=== PATIENT | male | born 1955 | race American Indian/Alaskan Native ===

== ENCOUNTER 2017-11-09 12:25 | Emergency (ER) | payer SELFPAY ==
--- NOTE | 2017-11-09 12:43 | Emergency Department Report ---
ED Psych HPI - General Stated Complaint: CHEST PAIN Time Seen by Provider: 11/09/17 12:41 ED Review of Systems ROS: Stated complaint: CHEST PAIN Other details as noted in HPI Critical care attestation.: If time is entered above; I have spent that time in minutes in the direct care of this critically ill patient, excluding procedure time. ED Disposition Condition: Stable
[2017-11-09 13:44] LABS: Basophils % (Auto) 0.8 % (0.0-1.8); Eosinophils # (Auto) 0.2 K/mm3 (0.0-0.4); Eosinophils % (Auto) 3.8 % (0.0-4.3); Hematocrit 39.4 % (35.5-45.6); Hemoglobin 13.7 gm/dl (11.8-15.2); Lymphocytes # (Auto) 1.7 K/mm3 (1.2-5.4); Mean Corpuscular HGB Conc 35 % (32-34); Mean Corpuscular Hemoglobin 32 pg (28-32); Mean Corpuscular Volume 91 fl (84-94); Monocytes # (Auto) 0.4 K/mm3 (0.0-0.8); Monocytes % (Auto) 9.5 % (0.0-7.3); Platelet Count 146 K/mm3 (140-440); Red Blood Count 4.33 M/mm3 (3.65-5.03); Red Cell Distribution Width 13.5 % (13.2-15.2)
[2017-11-09 13:51] LABS: Bilirubin,Urine NEG (Negative); Blood,Urine NEG (Negative); Color,Urine Yellow (Yellow)
[2017-11-09 13:55] LABS: INR 0.9 (0.87-1.13)
[2017-11-09 13:56] LABS: Partial Thromboplastin Time 31.3 Sec. (24.2-36.6)
[2017-11-09] MEDS ORDERED: NITRO-BID 2% TP ONE (13:59)
[2017-11-09 14:00] LABS: Amphetamine Screen,Urine PRESUMPTIVE NEGATIVE; Benzodiazepines Screen,Urine PRESUMPTIVE NEGATIVE; Cannabinoid Screen,Urine PRESUMPTIVE NEGATIVE; Cocaine Screen,Urine PRESUMPTIVE NEGATIVE; Methadone Screen,Urine PRESUMPTIVE NEGATIVE; Opiate Screen,Urine PRESUMPTIVE NEGATIVE
[2017-11-09 14:04] LABS: BUN/Creatinine Ratio 12; Blood Urea Nitrogen 16 mg/dL (9-20); Calcium 8.4 mg/dL (8.4-10.2); Hemolysis Index 4
[2017-11-09 14:06] LABS: Creatine Kinase MB 10.1 ng/mL (0.0-4.0)
[2017-11-09 14:07] LABS: Alanine Aminotransferase 15 units/L (7-56); Albumin 3.8 g/dL (3.9-5)
[2017-11-09 14:12] LABS: Bilirubin,Direct < 0.2 mg/dL (0-0.2)
--- NOTE | 2017-11-09 14:26 | Emergency Department Report ---
ED Chest Pain HPI - General Chief Complaint: Chest Pain Stated Complaint: CHEST PAIN Time Seen by Provider: 11/09/17 12:41 Source: patient, EMS Mode of arrival: Stretcher Limitations: No Limitations - History of Present Illness Initial Comments: 61-year-old male who states he was at [employer] when he started to experience chest pain. He states that it began around left side and then involved both his sides. He states that it radiated down his left arm and caused his hands to swell whereupon he removed his watch.He denied any difficulty in breathing. He denied any nausea or vomiting. EMS was summoned and he was given nitroglycerin and aspirin. The time of arrival he stated his chest pain had resolved. The patient states that he was last admitted to [facility]. He states that he did not have a heart catheterization but testing (I presume stress testing) indicated that something needed to be done. The patient did not agree for any further care at [place]. He states that he has been noncompliant with his blood pressure medicine for some time. He is immediately telling me that he wants to go home and come back tomorrow. I advised him he needed to be admitted to the hospital. He agreed to at least wait until his blood work returned. MD Complaint: chest pain -: Gradual Onset: during rest Pain Location: left chest, right chest Pain Radiation: LUE Severity: moderate, severe Quality: heaviness Consistency: now resolved Improves With: nitroglycerin, other (also given aspirin) Worsens With: nothing Context: other (medical noncompliance) re: denies: nausea, vomting, diaphoresis, dyspnea, sense of impending doom Other Symptoms: denies: cough, fever, syncope, rash, acid taste in mouth, leg swelling Treatments Prior to Arrival: none Aspirin use within the Past 7 Days: (0) No - Related Data On Oral Contraceptives: No Previous Rx's Medication Instructions Recorded Last Taken Type Valsartan/Hydrochlorothiazide 1 tab PO QDAY #30 tablet 11/09/17 Unknown Rx [Diovan Hct 160-12.5 mg] Allergies Allergy/AdvReac Type Severity Reaction Status Date / Time No Known Allergies Allergy Verified 11/09/17 13:15 Heart Score - HEART Score History: Moderately suspicious EKG: Significant ST-depression Age: 45-65 Risk factors: > 3 risk factors or hx of atherosclerotic disease Troponin: < normal limit HEART Score: 6 - Critical Actions Critical Actions: 4-6 pts:12-16.6% risk of adverse cardiac event. Should be admitted ED Review of Systems ROS: Stated complaint: CHEST PAIN Other details as noted in HPI Constitutional: denies: chills, fever Eyes: denies: eye pain, eye discharge, vision change ENT: denies: ear pain, throat pain Respiratory: denies: cough, shortness of breath, wheezing Cardiovascular: chest pain. denies: palpitations Endocrine: no symptoms reported Gastrointestinal: denies: abdominal pain, nausea, diarrhea Genitourinary: denies: urgency, dysuria Musculoskeletal: denies: back pain, joint swelling, arthralgia Skin: denies: rash, lesions Neurological: denies: headache, weakness, paresthesias Psychiatric: denies: anxiety, depression Hematological/Lymphatic: denies: easy bleeding, easy bruising ED Past Medical Hx - Past Medical History Previous Medical History?: Yes Hx Hypertension: Yes Additional medical history: hx emphysema; heart murmur - Surgical History Past Surgical History?: Yes Additional Surgical History: left leg surgery - Social History Smoking Status: Current Every Day Smoker Substance Use Type: None - Medications Home Medications: Home Medications Medication Instructions Recorded Confirmed Last Taken Type Valsartan/Hydrochlorothiazide 1 tab PO QDAY #30 tablet 11/09/17 Unknown Rx [Diovan Hct 160-12.5 mg] ED Physical Exam - General Limitations: No Limitations General appearance: alert, in no apparent distress - Head Head exam: Present: atraumatic, normocephalic - Eye Eye exam: Present: normal appearance. Absent: scleral icterus - ENT ENT exam: Present: mucous membranes moist - Neck Neck exam: Present: normal inspection. Absent: tenderness, meningismus - Respiratory Respiratory exam: Present: normal lung sounds bilaterally. Absent: respiratory distress - Cardiovascular Cardiovascular Exam: Present: regular rate, normal rhythm. Absent: systolic murmur, diastolic murmur, rubs, gallop - GI/Abdominal GI/Abdominal exam: Present: soft, normal bowel sounds. Absent: distended, tenderness, guarding, rebound, rigid - Rectal Rectal exam: Present: deferred - Extremities Exam Extremities exam: Present: normal inspection - Back Exam Back exam: Present: normal inspection - Neurological Exam Neurological exam: Present: alert, oriented X3, CN II-XII intact. Absent: motor sensory deficit - Psychiatric Psychiatric exam: Present: normal affect, normal mood - Skin Skin exam: Present: warm, dry, intact, normal color. Absent: rash ED Course Vital Signs 11/09/17 11/09/17 11/09/17 12:48 12:54 12:57 Temperature 98.3 F 98.3 F Pulse Rate 64 64 Respiratory 17 Rate Blood Pressure 169/93 Blood Pressure 169/93 [Left] O2 Sat by Pulse 97 100 97 Oximetry 11/09/17 11/09/17 11/09/17 13:00 13:03 13:15 Temperature 98.3 F Pulse Rate 67 64 62 Respiratory 13 17 22 Rate Blood Pressure 169/93 183/97 Blood Pressure 169/93 [Left] O2 Sat by Pulse 99 97 100 Oximetry 11/09/17 11/09/17 11/09/17 13:30 13:45 14:00 Temperature Pulse Rate 60 56 L 73 Respiratory 17 16 13 Rate Blood Pressure 169/94 178/92 174/100 Blood Pressure [Left] O2 Sat by Pulse 100 97 Oximetry 11/09/17 14:11 Temperature Pulse Rate 69 Respiratory Rate Blood Pressure 174/100 Blood Pressure [Left] O2 Sat by Pulse Oximetry - Reevaluation(s) Reevaluation #1: Patient's blood pressure remained elevated. An inch of Nitrol paste was placed. Nurse told me that the patient stated he had been taking his 's blood pressure medicine recently. The patient has an elevated proBNP. Abdomen minimum he has a hypertensive cardiomyopathy. He will be informed again of the need for admission. Will sign out AGAINST MEDICAL ADVICE. He is unwilling to stay. I will do what I can for his continued treatment for hypertension It is certainly recommended that the patient be admitted. The risks and benefits have been fully discussed. 11/09/17 14:29 Reevaluation #2: Patient was counseled as to the need for admission once again. He is mentally competent. He has decided to sign out AGAINST MEDICAL ADVICE being aware of his abnormal lab tests and the risk of and disability. 11/09/17 15:25 ED Medical Decision Making - Lab Data Result diagrams: 11/09/17 13:21 11/09/17 13:21 Laboratory Results - last 24 hr 11/09/17 11/09/17 11/09/17 12:48 12:48 13:21 WBC 4.6 RBC 4.33 Hgb 13.7 Hct 39.4 MCV 91 MCH 32 MCHC 35 H RDW 13.5 Plt Count 146 Lymph % (Auto) 36.0 H [place] % (Auto) 9.5 H Eos % (Auto) 3.8 Baso % (Auto) 0.8 Lymph # 1.7 [place] # 0.4 Eos # 0.2 Baso # 0.0 Seg Neutrophils % 49.9 Seg Neutrophils # 2.3 PT INR APTT Sodium Potassium Chloride Carbon Dioxide Anion Gap BUN Creatinine Estimated GFR BUN/Creatinine Ratio Glucose Calcium Total Bilirubin Direct Bilirubin Indirect Bilirubin AST ALT Alkaline Phosphatase Total Creatine Kinase CK-MB (CK-2) CK-MB (CK-2) Rel Index Troponin T NT-Pro-B Natriuret Pep Total Protein Albumin Albumin/Globulin Ratio Urine Color Yellow Urine Turbidity Clear Urine pH 6.0 Ur Specific [place] 1.018 Urine Protein 30 mg/dl Urine Glucose (UA) Neg Urine Ketones Neg Urine Blood Neg Urine Nitrite Neg Urine Bilirubin Neg Urine Urobilinogen 2.0 Ur Leukocyte Esterase Neg Urine WBC (Auto) 1.0 Urine RBC (Auto) 2.0 Urine Opiates Screen Presumptive negative Urine Methadone Screen Presumptive negative Ur Barbiturates Screen Presumptive negative Ur Phencyclidine Scrn Presumptive negative Ur Amphetamines Screen Presumptive negative U Benzodiazepines Scrn Presumptive negative Urine Cocaine Screen Presumptive negative U Marijuana (THC) Screen Presumptive negative Drugs of Abuse Note Disclamer Blood Type Antibody Screen 11/09/17 11/09/17 11/09/17 13:21 13:21 13:21 WBC RBC Hgb Hct MCV MCH MCHC RDW Plt Count Lymph % (Auto) [place] % (Auto) Eos % (Auto) Baso % (Auto) Lymph # [place] # Eos # Baso # Seg Neutrophils % Seg Neutrophils # PT 12.6 INR 0.90 APTT 31.3 Sodium 141 Potassium 3.3 L Chloride 98.7 Carbon Dioxide 32 H Anion Gap 14 BUN 16 Creatinine 1.3 Estimated GFR > 60 BUN/Creatinine Ratio 12 Glucose 96 Calcium 8.4 Total Bilirubin 0.60 Direct Bilirubin < 0.2 Indirect Bilirubin 0.4 AST 17 ALT 15 Alkaline Phosphatase 79 Total Creatine Kinase 378 H CK-MB (CK-2) 10.1 H CK-MB (CK-2) Rel Index 2.6 Troponin T < 0.010 NT-Pro-B Natriuret Pep 2377 H Total Protein 6.2 L Albumin 3.8 L Albumin/Globulin Ratio 1.6 Urine Color Urine Turbidity Urine pH Ur Specific [place] Urine Protein Urine Glucose (UA) Urine Ketones Urine Blood Urine Nitrite Urine Bilirubin Urine Urobilinogen Ur Leukocyte Esterase Urine WBC (Auto) Urine RBC (Auto) Urine Opiates Screen Urine Methadone Screen Ur Barbiturates Screen Ur Phencyclidine Scrn Ur Amphetamines Screen U Benzodiazepines Scrn Urine Cocaine Screen U Marijuana (THC) Screen Drugs of Abuse Note Blood Type Antibody Screen 11/09/17 13:21 WBC RBC Hgb Hct MCV MCH MCHC RDW Plt Count Lymph % (Auto) [place] % (Auto) Eos % (Auto) Baso % (Auto) Lymph # [place] # Eos # Baso # Seg Neutrophils % Seg Neutrophils # PT INR APTT Sodium Potassium Chloride Carbon Dioxide Anion Gap BUN Creatinine Estimated GFR BUN/Creatinine Ratio Glucose Calcium Total Bilirubin Direct Bilirubin Indirect Bilirubin AST ALT Alkaline Phosphatase Total Creatine Kinase CK-MB (CK-2) CK-MB (CK-2) Rel Index Troponin T NT-Pro-B Natriuret Pep Total Protein Albumin Albumin/Globulin Ratio Urine Color Urine Turbidity Urine pH Ur Specific [place] Urine Protein Urine Glucose (UA) Urine Ketones Urine Blood Urine Nitrite Urine Bilirubin Urine Urobilinogen Ur Leukocyte Esterase Urine WBC (Auto) Urine RBC (Auto) Urine Opiates Screen Urine Methadone Screen Ur Barbiturates Screen Ur Phencyclidine Scrn Ur Amphetamines Screen U Benzodiazepines Scrn Urine Cocaine Screen U Marijuana (THC) Screen Drugs of Abuse Note Blood Type A POSITIVE Antibody Screen Negative - EKG Data -: EKG Interpreted by Me EKG shows normal: sinus rhythm, axis, intervals Rate: normal - EKG Data Interpretation: other (inferolateral T-wave inversions. RSR in the 1 V2. Slight J-point elevation. LVH is suggested. Ischemia cannot be excluded.) - Radiology Data interpreted by me: Chest x-ray shows no acute process. Critical care attestation.: If time is entered above; I have spent that time in minutes in the direct care of this critically ill patient, excluding procedure time. ED Disposition Clinical Impression: Uncontrolled hypertension Chest pain Qualifiers: Chest pain type: unspecified Qualified Code(s): R07.9 - Chest pain, unspecified Disposition: LEFT AGAINST MED ADVICE Is pt being admited?: No Does the pt Need Aspirin: No Condition: Stable Instructions: Chest Pain (ED), Hypertension (ED) Additional Instructions: I have strongly recommended that you stay for further care as an inpatient. You have signed out AGAINST MEDICAL ADVICE understanding the risk of etc. I can refer you to a health consultant and her primary care physician. You should take aspirin every day and diet given you a prescription for your blood pressure. This does not supplant or replace the need for admission as I have explained. Take 2 baby aspirin a day and a minimum. Prescriptions: Valsartan/Hydrochlorothiazide [Diovan Hct 160-12.5 mg] 1 tab PO QDAY #30 tablet Referrals: PRIMARY CAREMD [Primary Care Provider] - 3-5 Days MAXI JACKSON MD [Staff Physician] - [facility] [Provider Group] - 2-3 Days Forms: AMA Form Time of Disposition: 15:43
[2017-11-09] MEDS ORDERED: K-DUR PO ONE (15:45)
[2017-11-09 16:29] VITALS: BP 169/96
--- NOTE | 2017-11-13 13:01 | XRay Report ---
AP CHEST: HISTORY: chest pain AP view of the chest demonstrates a normal mediastinal and cardiac contour with clear lungs and normal bony and soft tissue structures. IMPRESSION: No acute process.
== END 2017-11-09 15:57 | disposition left against medical advice (07) ==
LOC: ED 12:25
DX: I10 Essential (primary) hypertension (principal); R07.9 Chest pain, unspecified; F17.200 Nicotine dependence, unspecified, uncomplicated
CPT/HCPCS: 36415; 71045; 80048; 80074; 80307; 81001; 82550; 82553; 83880; 84484; 85025; 85610; 85730; 86850; 86900; 86901; 93005; 93010

== ENCOUNTER 2018-02-25 20:28 | Emergency (ER) | payer OTHER ==
[2018-02-25 21:09] VITALS: BP 190/102
[2018-02-26] MEDS ORDERED: TORADOL IM ONE (03:48)
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
== END 2018-02-26 06:15 | disposition home or self-care (01) ==
LOC: ED 20:28
DX: S39.012A Strain of muscle, fascia and tendon of lower back, initial encounter (principal); S16.1XXA Strain of muscle, fascia and tendon at neck level, initial encounter; M50.320 Other cervical disc degeneration, mid-cervical region, unspecified level; I10 Essential (primary) hypertension; I25.2 Old myocardial infarction; F17.200 Nicotine dependence, unspecified, uncomplicated; V89.2XXA Person injured in unspecified motor-vehicle accident, traffic, initial encounter; Y93.89 Activity, other specified; Y92.410 Unspecified street and highway as the place of occurrence of the external cause; Y99.8 Other external cause status
CPT/HCPCS: 72040; 72070; 72100; 93005; 93010; 96372; 99283; J1885

== ENCOUNTER 2020-02-18 10:09 | Emergency (ER) | payer MEDICAID, OTHER ==
--- NOTE | 2020-02-18 10:38 | Emergency Department Report ---
ED General Adult HPI - General Chief complaint: High BP Stated complaint: HBP Time Seen by Provider: 02/18/20 10:37 Source: patient Mode of arrival: Ambulatory Limitations: No Limitations - History of Present Illness Initial comments: 64 yr old male with pmhx HTN, HPLD, CAD/MIs, tobacco abuse and Chronic HAs presents to ED c/o GARCIA. Pt states he has been having global HAs for months but it flared up about 1 week ago. Pt states in past week his GARCIA has been constant, non radiating and similar to prior headaches. He denies any head injury. He denies any nausea/vomiting, abdominal pain, vision changes, focal weakness, numbness, tingling, cp , sob, neck pain or any other associated symptoms. He states he usually have to take 12 tablets of either advil or motrin twice per day to help with his HAs. He states thats the only thing that seems to help his HAs. He states he has difficulty sleeping at night and therefore takes nyquil a lot. He states he has not been compliant with his doctors visits and so his PCP office called him today to see if he could make a visit today. When he went to PCP today, and they checked his BP it was 200 systolic and so they sent him here to ED. Pt admits that he has not been taking his BP medications like he suppose to. He states he feels like the medications as not helping because he is still having the HAs. He states he does not check his BP meds regularly. Complaint: HEADACHE -: month(s) Location: head Radiation: non-radiation - Related Data Previous Rx's Medication Instructions Recorded Last Taken Type Atorvastatin Calcium [Lipitor] 20 mg PO HS #30 tablet 12/05/17 Unknown Rx carvediloL [Coreg] 12.5 mg PO BID #30 tablet 12/05/17 Unknown Rx Ibuprofen [Motrin 600 MG tab] 600 mg PO Q8H PRN #15 tablet 02/26/18 Unknown Rx Acetaminophen/Codeine [Tylenol 1 tab PO Q6H PRN #12 tab 02/18/20 Unknown Rx /Codeine # 3 tab] Allergies Allergy/AdvReac Type Severity Reaction Status Date / Time No Known Allergies Allergy Verified 11/09/17 13:15 ED Review of Systems ROS: Stated complaint: HBP Other details as noted in HPI Constitutional: denies: chills, fever Eyes: denies: eye pain, eye discharge, vision change ENT: denies: ear pain, throat pain Respiratory: denies: cough, shortness of breath, wheezing Cardiovascular: denies: chest pain, palpitations Musculoskeletal: denies: back pain, joint swelling, arthralgia Skin: denies: rash, lesions Neurological: headache. denies: weakness, numbness, paresthesias, confusion, abnormal gait, vertigo Psychiatric: denies: anxiety, depression Hematological/Lymphatic: denies: easy bleeding, easy bruising ED Past Medical Hx - Past Medical History Previous Medical History?: Yes Hx Hypertension: Yes Hx Heart Attack/AMI: Yes (5 times refused open heart) Hx Congestive Heart Failure: No Hx Diabetes: No Hx Asthma: No Hx COPD: No Additional medical history: hx emphysema; heart murmur - Surgical History Past Surgical History?: Yes Additional Surgical History: left leg surgery - Social History Smoking Status: Never Smoker Substance Use Type: None - Medications Home Medications: Home Medications Medication Instructions Recorded Confirmed Last Taken Type Atorvastatin Calcium [Lipitor] 20 mg PO HS #30 tablet 12/05/17 Unknown Rx carvediloL [Coreg] 12.5 mg PO BID #30 tablet 12/05/17 Unknown Rx Ibuprofen [Motrin 600 MG tab] 600 mg PO Q8H PRN #15 tablet 02/26/18 Unknown Rx Acetaminophen/Codeine [Tylenol 1 tab PO Q6H PRN #12 tab 02/18/20 Unknown Rx /Codeine # 3 tab] ED Physical Exam - General Limitations: No Limitations General appearance: alert, in no apparent distress - Head Head exam: Present: atraumatic, normocephalic, normal inspection - Eye Eye exam: Present: normal appearance, PERRL, EOMI Pupils: Present: normal accommodation - ENT ENT exam: Present: normal exam, normal orophraynx, mucous membranes moist - Neck Neck exam: Present: normal inspection, full ROM. Absent: tenderness, meningismus - Respiratory Respiratory exam: Present: normal lung sounds bilaterally. Absent: respiratory distress, wheezes, rales, rhonchi - Cardiovascular Cardiovascular Exam: Present: regular rate, normal rhythm, normal heart sounds - GI/Abdominal GI/Abdominal exam: Present: soft. Absent: distended, tenderness - Neurological Exam Neurological exam: Present: alert, oriented X3, CN II-XII intact, normal gait. Absent: reflexes normal - Psychiatric Psychiatric exam: Present: normal affect, normal mood - Skin Skin exam: Present: intact ED Course Vital Signs 02/18/20 02/18/20 02/18/20 10:13 12:35 12:57 Temperature 98.2 F Pulse Rate 86 62 88 Respiratory 16 16 18 Rate Blood Pressure 208/99 193/95 170/92 [Left] O2 Sat by Pulse 100 97 97 Oximetry ED Medical Decision Making - Lab Data Result diagrams: 02/18/20 11:35 02/18/20 11:35 - Radiology Data Radiology results: image reviewed - Medical Decision Making 1244 --Pt presented with c/o GARCIA and elevated BP. He has Hx of GARCIA but when he went to his PCP office today, his BP was 200 systolic and so he was sent to ED. Pt admitted that his HAs today is same as previous. He also admitted that he does not take his BP meds like he is suppose to. Other than GARCIA he had no other complaints. Pt sleeping comfortably. Easily arousable. oriented 3. He states his GARCIA is much better after meds. Repeat BP after GARCIA reglan and benadryl improving. Pt did not take his amlodipine nor his coreg today, so he was instructed to take them now. Labs/CT head reviewed. Head CT negative for anything acute. Labs unremarkable. Pt is well appearing, not toxic, not in any distress, he is neurologically intact. Discussed results with patient. The patient's history, exam, diagnostic testing and his current condition does not suggest meningitis, stroke, sepsis, subarachnoid hemorrhage, intracranial bleed, encephalitis, temporal arteritis or any other significant pathology warranting further testing continued ED treatment, admission, neurosurgical consultation or any other specialist evaluation at this time. Educated patient on the fact that he should not be taking 24 tablets of advil per day for his GARICA. He needs to follow the recommend directions for any medications that he takes. He needs to be compliant with his PCP visits and BP medications. Informed him that his PCP can refer him to neurology to better control his Headaches. Pt expressed understanding of instructions and agrees with plan. Pt stable at this time for d/c. He understands to return to ED if worse. Critical care attestation.: If time is entered above; I have spent that time in minutes in the direct care of this critically ill patient, excluding procedure time. ED Disposition Clinical Impression: Headache, Uncontrolled hypertension, Non compliance w medication regimen Disposition: DC-01 TO HOME OR SELFCARE Is pt being admited?: No Does the pt Need Aspirin: No Condition: Stable Instructions: Cluster Headache (ED), Migraine Headache (ED), Tension Headache (ED), Chronic Hypertension (ED), Hypertension (ED) Additional Instructions: It is very important that you take your blood pressure medications as prescribed and daily. YOU SHOULD NOT TAKE MORE THAN THE REQUIRED DOSE OF ANY PRESCRIBED NOR OVER THE COUNTER MEDICATIONS (LIKE ASPRIN, ALEVE, ADVIL, TYLENOL, ETC). FOLLOW THE DIRECTIONS ON PACKAGES AND ON YOUR PRESCRIPTION BOTTLE. IT IS IMPORTANT THAT YOU KEEP YOUR APPOINTMENTS WITH YOUR PCP. TAKE YOUR NITRO ONLY NEEDED FOR CHEST PAIN, DO NOT TAKE IT FOR HEADACHES IT CAN ALSO CAUSE HEADACHES. Return to ED if your symptoms changes or worsens in any way. Prescriptions: Acetaminophen/Codeine [Tylenol /Codeine # 3 tab] 1 tab PO Q6H PRN #12 tab PRN Reason: Headache Referrals: PRIMARY CARE, [Primary Care Provider] - 3-5 Days Time of Disposition: 12:39
[2020-02-18] MEDS ORDERED: SODIUM CHLORIDE 0.9% 1000 ML 1,000 ML IV ONE (10:54)
[2020-02-18] MEDS ORDERED: METOCLOPRAMIDE 10 MG/2 ML INJ IV ONE (10:54)
[2020-02-18] MEDS ORDERED: diphenhydrAMINE 50 MG/ML VIAL IV ONE (10:56)
[2020-02-18 11:47] LABS: Basophils # (Auto) 0.1 K/mm3 (0.0-0.1); Basophils % (Auto) 1.1 % (0.0-1.8); Eosinophils # (Auto) 0.1 K/mm3 (0.0-0.4); Eosinophils % (Auto) 2.1 % (0.0-4.3); Hematocrit 39.7 % (35.5-45.6); Hemoglobin 13.6 gm/dl (11.8-15.2); Lymphocytes # (Auto) 1.6 K/mm3 (1.2-5.4); Lymphocytes % (Auto) 29.5 % (13.4-35.0); Mean Corpuscular HGB Conc 34 % (32-34); Mean Corpuscular Volume 93 fl (84-94); Monocytes # (Auto) 0.4 K/mm3 (0.0-0.8); Monocytes % (Auto) 7.9 % (0.0-7.3); Platelet Count 185 K/mm3 (140-440); Red Blood Count 4.28 M/mm3 (3.65-5.03); Red Cell Distribution Width 13.3 % (13.2-15.2)
[2020-02-18 12:08] LABS: Alanine Aminotransferase 13 units/L (7-56); Albumin 3.8 g/dL (3.9-5); BUN/Creatinine Ratio 14; Blood Urea Nitrogen 18 mg/dL (9-20); Calcium 8.7 mg/dL (8.4-10.2); Hemolysis Index 4
--- NOTE | 2020-02-18 12:26 | Cat Scan Report ---
CT head/brain wo con INDICATION / CLINICAL INFORMATION: 64 years Male; Headaches. TECHNIQUE: Routine CT head without contrast. All CT scans at this location are performed using CT dos e reduction for ALARA by means of automated exposure control. COMPARISON: 12/25/2010 FINDINGS: BRAIN / INTRACRANIAL CONTENTS: No acute hemorrhage, mass effect, midline shift, hydrocephalus, or acu te, large territorial infarct. No chronic infarct or atrophy appreciated. There are mild areas of decreased attenuation in the white matter of the cerebral hemispheres. These are nonspecific findings and may be related to microangiopathy (hypertension, diabetes, atheroscleros is), given the patient's age. CRANIOCERVICAL JUNCTION: No significant abnormality. ORBITS: Would question exophthalmos and mild prominence of the extraocular muscles - thyroid orbitopa thy might be consideration. Please clinically correlate. SINUSES / MASTOIDS: No significant abnormality in the visualized paranasal sinuses or mastoid air jerry ls. ADDITIONAL FINDINGS: Subcutaneous soft tissue swelling seen in the posterior parietal region on the l eft. No signs of underlying calvarial fracture. IMPRESSION: 1. No focal mass, hemorrhage, hydrocephalus, or acute, large territorial infarct. 2. Thyroid orbitopathy might be a consideration. Please clinically correlate. Signer Name: Morgan Walker MD, III Signed: 02/18/2020 12:22 PM Workstation Name: [id number]
[2020-02-18 12:59] VITALS: BP 170/92
== END 2020-02-18 12:57 | disposition home or self-care (01) ==
LOC: ED 10:09
DX: R51 Headache (principal); I10 Essential (primary) hypertension; Z91.14 Patient's other noncompliance with medication regimen; I25.2 Old myocardial infarction; Z98.890 Other specified postprocedural states; Z79.1 Long term (current) use of non-steroidal anti-inflammatories (NSAID); Z79.899 Other long term (current) drug therapy
CPT/HCPCS: 36415; 70450; 80053; 85025; 96361; 96374; 96375; 99284; J1200; J2765; J7030; 80320; G0480